=== PATIENT | female | born 1960 | race African-American/Black ===

== ENCOUNTER 2017-12-31 12:14 | Emergency (ER) | payer SELFPAY ==
[~2017-12-31] VITALS: Ht 154.9 cm; Wt 66.0 kg
[2017-12-31 12:30] VITALS: BP 141/62
[2017-12-31] MEDS ORDERED: INSLIS SUBCUT (12:33)
[2017-12-31] MEDS ORDERED: LOSA25TA12 PO (12:33)
[2017-12-31] MEDS ORDERED: insulin (12:33)
[2017-12-31] MEDS ORDERED: ATOR10TA69 PO (12:33)
== END 2017-12-31 19:06 | disposition left against medical advice (07) ==
LOC: ER 12:14
DX: M79.671 Pain in right foot (principal); Z53.21 Procedure and treatment not carried out due to patient leaving prior to being seen by health care provider

== ENCOUNTER 2021-07-21 16:15 | Emergency (ER) | payer SELFPAY ==
[~2021-07-21] VITALS: Ht 162.6 cm; Wt 75.0 kg
[~2021-07-21 16:15] MED LIST: ATOR10TA69 PO; INSLIS SUBCUT; LOSA25TA26 PO; insulin
[2021-07-21 17:48] LABS: BASOPHILS % 0.2 % (0.0-2.0); CHLORIDE 102 mEq/L (98-107); EOSINOPHILS % 0.1 % (0.0-5.0); HEMOGLOBIN. 13.5 g/dL (12.0-16.0); LYMPHOCYTES % 7.4 % (20.0-50.0); MEAN CORPUSCULAR HEMOGLOBIN 29.2 pg (28.0-32.0); MEAN CORPUSCULAR VOLUME 86.5 fL (81.0-99.0); MEAN PLATELET VOLUME 8.7 fl (7.4-10.4); MONOCYTES % 7.5 % (2.0-8.0); NEUTROPHILS % 84.8 % (40.0-76.0); PLATELET 180 x1000/uL (130-400); RED BLOOD CELL COUNT 4.62 mill/uL (4.2-5.4); RED CELL DISTRIBUTION WIDTH 13.2 % (11.6-14.6)
[2021-07-21] MEDS ORDERED: SODIUM CHLORIDE 0.9% 1,000 ML IV NR (19:15)
[2021-07-21] MEDS ORDERED: MORPHINE SULFATE 4 MG/ML CPJ (NOT FOR IM USE) IV NR (19:15)
[2021-07-21] MEDS ORDERED: ONDANSETRON HCL 4MG/2ML INJ IV NR (19:15)
[2021-07-21 20:19] LABS: CLARITY URINE CLEAR (CLEAR); COLOR URINE YELLOW (YELLOW); KETONES URINE 1+ (NEGATIVE); LEUKOCYTE ESTERASE URINE NEGATIVE (NEGATIVE); NITRITE URINE NEGATIVE (NEGATIVE); OCCULT BLOOD URINE NEGATIVE (NEGATIVE); PH URINE >=9.0 (4.5-8.0); PROTEIN URINE 1+ (NEGATIVE); SPECIFIC GRAVITY URINE 1.024 (1.005-1.030); UROBILINOGEN URINE 0.2 E.U./dL (0.2-1.0)
[2021-07-21] MEDS ORDERED: IOHEXOL-300 100 ML BOTTLE ONE (22:50)
[2021-07-21 23:56] VITALS: BP 124/72
== END 2021-07-22 01:03 | disposition home or self-care (01) ==
LOC: ER 16:15
DX: K80.20 Calculus of gallbladder without cholecystitis without obstruction (principal); E11.9 Type 2 diabetes mellitus without complications; E78.00 Pure hypercholesterolemia, unspecified; I10 Essential (primary) hypertension; Z98.890 Other specified postprocedural states; Z79.4 Long term (current) use of insulin; Z88.5 Allergy status to narcotic agent; Z88.2 Allergy status to sulfonamides
CPT/HCPCS: 36415; 74177; 80053; 81003; 82962; 83690; 85025; 96374; 96375; 99285; J2270; J2405; Q9967